=== PATIENT | male | born 1965 | race Caucasian/White ===

== ENCOUNTER 2022-11-16 09:19 | Day surgery (SDC) | payer OTHER ==
[~2022-11-16] VITALS: Ht 167.6 cm; Wt 93.0 kg
[2022-11-16] MEDS ORDERED: diphenhydrAMINE 50 MG/ML VIAL ONE (10:58)
[2022-11-16] MEDS ORDERED: LIDOCAINE 2% 100 MG/5 ML UJET TP ONE (10:59)
[2022-11-16] MEDS ORDERED: fentaNYL citrate 0.05 MG/ML VIAL ONE (10:59)
[2022-11-16] MEDS ORDERED: MIDAZOLAM 5 MG/5 ML VIAL ONE (10:59)
[2022-11-16] MEDS ORDERED: fentaNYL citrate 0.05 MG/ML VIAL IVP ONE (12:25)
[2022-11-16] MEDS ORDERED: MIDAZOLAM 2 MG/2 ML VIAL IVP ONE (12:25)
[2022-11-16] MEDS ORDERED: diphenhydrAMINE 50 MG/ML VIAL IVP ONE (12:25)
== END 2022-11-16 12:19 | disposition home or self-care (01) ==
LOC: MOR 09:19 → MMU 10:07 → MOR 12:19
PROVIDERS: ATTEND Internal Medicine Gastroenterology
DX: Z12.11 Encounter for screening for malignant neoplasm of colon (principal); K52.9 Noninfective gastroenteritis and colitis, unspecified; E11.9 Type 2 diabetes mellitus without complications; Z79.84 Long term (current) use of oral hypoglycemic drugs; Z79.899 Other long term (current) drug therapy
CPT/HCPCS: 45380; 82948; J1200; J2250; J3010; 88305